=== PATIENT | female | born 1950 | race Caucasian/White ===

== ENCOUNTER 2022-04-05 06:04 | Emergency (ER) | payer OTHER ==
[~2022-04-05] VITALS: Ht 162.6 cm; Wt 45.0 kg
[2022-04-05 06:05] VITALS: BP 114/83
== END 2022-04-05 06:49 | disposition left against medical advice (07) ==
LOC: ER 06:05
DX: R05.9 Cough, unspecified (principal); R09.89 Other specified symptoms and signs involving the circulatory and respiratory systems; Z53.21 Procedure and treatment not carried out due to patient leaving prior to being seen by health care provider